=== PATIENT | male | born 1935 | race Caucasian/White ===

== ENCOUNTER 2016-08-11 03:58 | Emergency (ER) | payer OTHER ==
[~2016-08-11] VITALS: Ht 182.9 cm; Wt 91.7 kg
[~2016-08-11 03:58] MED LIST: GLUC500T23 PO; LISI-461 PO; METO50TA7 PO; MIRT15TA2 PO; NTRGSL4 SL; SALI0.6517; SIMV20TA2 PO
[2016-08-11 04:00] VITALS: TEMP 36.6; Ht 182.9 cm; Wt 91.7 kg
--- NOTE | 2016-08-11 05:01 | EMERGENCY ROOM VISIT NOTE ---
History Report prepared by Wendy: Bettye Carmona Under the Supervision of: Dr. Arely Dillon M.D. 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 The patient has been experiencing bilateral leg weakness for the past month that has been worsening. Early this morning he woke up to go to the bathroom and get a drink of water. He stood and felt dizzy. His legs were very weak and he sat down in the recliner. After a short time he tried to get up and he fell forward into the coffee table landing on his left rib cage. The patient is complaining of left rib pain that is a 1/10 in severity. He has chronic back pain, which he states is worse after his fall. The patient has a history of Non-Hodgkin's Lymphoma and last received chemotherapy in December 2015. He was recently diagnosed with a mass in his testicle. His daughter states that his oncologist in [place] suspects that his cancer has returned. The patient is scheduled for a PET scan today in [place]. After his fall this morning his [facility] and was advised to bring the patient to the ED at [facility] for further evaluation. The patient denies shortness of breath, chest pain, abdominal pain, and neck pain. 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 Review of Systems See HPI for pertinent positives & negatives. A total of 10 systems reviewed and were otherwise negative. Past Medical & Surgical Medical Problems: (1) CAD (coronary artery disease) (2) H/O diverticulitis of colon (3) History of tobacco abuse (4) Hx of basal cell carcinoma (5) Hyperlipidemia (6) Hypertension (7) Lung nodules (8) Lymphoma (9) Malignant neoplasm prostate (10) WV (myocardial infarction) (11) Neutropenic fever (12) Non-Hodgkin lymphoma (13) Osteoarthritis (14) Pseudomonal sepsis (15) Sepsis Surgical Problems: (1) H/O colonoscopy (2) H/O radical prostatectomy (3) History of arthroplasty of right knee (4) History of cataract surgery (5) History of dental surgery (6) S/P coronary artery stent placement (7) S/P inguinal hernia repair Family History FH: cancer Heart disease Hypertension Social History Smoking Status: Former Smoker Marital Status: Housing Status: lives with significant other Occupation Status: retired Current/Historical Medications Scheduled Glucosamine-Chondroitin (Glucosamine/Chondroitin), 1 TAB PO BID Lisinopril (Zestril), 10 MG PO QAM Metoprolol Succ (Toprol Xl) (Toprol-Xl), 50 MG PO QAM Simvastatin (Zocor), 20 MG PO HS Scheduled PRN Hydrocodone/Acetaminophen 5MG/325MG (Spring 5MG/325MG), 1-2 TABLETS PO Q6 PRN for Pain Nitroglycerin (Nitrostat), 1 TAB SL UD PRN for CHEST PAIN Sodium Chloride (Greenleaf Nasal), 1 SPRAY NA UD PRN for Nasal Congestion Allergies Coded Allergies: Adhesives (Unverified Allergy, Unknown, RED SKIN WITH SOME TAPES, 08/09/16) Allopurinol (Unverified Allergy, Unknown, RASH ON STOMACH , 08/09/16) Niacin (Verified Adverse Reaction, Unknown, FLUSH SKIN, 08/09/16) Physical Exam Vital Signs Date Time Temp Pulse Resp B/P Pulse Ox O2 Delivery O2 Flow Rate FiO2 08/11/16 07:30 86 164/84 08/11/16 06:25 96 24 157/90 95 Room Air 08/11/16 05:18 85 20 151/91 92 Room Air 08/11/16 04:50 86 08/11/16 04:00 36.6 78 20 162/87 95 Room Air Physical Exam Vital signs reviewed. General: Chronically ill-appearing 80-year-old male, in no significant distress. HEENT: No scleral icterus, PERRLA, neck supple. Atraumatic. Cardiovascular: Regular rate and rhythm, no extra sounds. Pulmonary: Clear to auscultation bilaterally, normal work of breathing. Abdomen: Soft, nontender, nondistended, positive bowel sounds. Musculoskeletal: 3 cm ecchymotic area over the left anterior ribs, no peripheral edema. Nontender to palpation of cervical, thoracic and lumbar spine. Neurologic: Patient awake alert and oriented x 3, full strength in all 4 extremities. Cranial nerves 2 through 12 grossly intact. Skin: Warm, dry, multiple subcutaneous nodules to the upper extremities and trunk. Medical Decision & Procedures ER Provider Diagnostic Interpretation: Radiology results as stated below per my review and radiologist interpretation: CT CHEST WITH CONTRAST: Comparison is made to CT chest dated 08/14/15. Main pulmonary artery is enlarged compatible with pulmonary arterial hypertension. Thoracic aorta is normal in caliber. There is cardiomegaly and coronary sclerosis without pericardial effusion. There is no adenopathy by size criteria. Lungs demonstrate centrilobular emphysematous changes and mild subpleural reticulations towards the lung bases. There is no airspace consolidation, pleural effusion, or pneumothorax. There is no evidence of acute osseous abnormality. Sclerosis of the lateral left seventh rib may represent old, healed fracture. There is an area of mild left lateral chest wall contusion over the left 6th and 7th ribs. There is a 3cm region of soft tissue density in the subcutaneous tissues posterolateral to the left scapula (series 2, image 24), indeterminate, metastatic/neoplastic lesion is a possibility. CT ABDOMEN & PELVIS: Comparison is made to CT abdomen and pelvis dated 08/16/15. There is a 23 mm soft tissue density nodule anterior to the left hepatic lobe, new from prior exam. This may represent a peritoneal nodule related to metastatic disease. This nodule is located inferior to the xiphoid near the midline (series 3, image 18), potentially amenable to ultrasound evaluation. The liver is unremarkable. There is stable splenomegaly measuring 17 cm. There is mild gallbladder wall thickening which may represent hyperplastic cholecystosis or neoplastic process. Gallbladder ultrasound may be performed for further evaluation. The pancreas and left adrenal gland are normal. There is a stable 22 mm right intrarenal nodule, most likely a benign adenoma. The kidneys are normal. There is aortoiliac atherosclerosis without aneurysm. There is no evidence of bowel obstruction, appendicitis, or diverticulitis. Prostate is surgically absent. Urinary bladder is unremarkable. There is a fat- containing left inguinal hernia. There is mild left inguinal adenopathy. Bones are osteopenic. Multilevel mild compression deformities in the lower thoracic and upper lumbar spine are stable from prior exam. Radiologist: Farzad Samuels M.D. Laboratory Results Test 08/11/16 05:01 08/11/16 06:32 Bedside Hemoglobin 12.6 g/dl (14.0-18.0) Bedside Hematocrit 37 % (42-52) Bedside Sodium 141 mEq/L (135-144) Bedside Potassium 3.9 mEq/L (3.3-5.0) Bedside Chloride 103 mEq/L (101-112) Bedside Total CO2 23 mEq/l (24-31) Anion Gap 20.0 mmol/L (16-25) Bedside Blood Urea Nitrogen 22 mg/dl (7-18) Bedside Creatinine 0.8 mg/dl (0.6-1.3) Bedside Glucose (other) 96 mg/dl (70-99) Bedside Ionized Calcium (Mauricio) 1.21 mmol/l (1.12-1.32) Urine Color YELLOW Urine Appearance CLEAR (CLEAR) Urine pH 5.5 (4.5-7.5) Urine Specific [place] 1.015 (1.000-1.030) Urine Protein NEG (NEG) Urine Glucose (UA) NEG (NEG) Urine Ketones 1+ (NEG) Urine Occult Blood TRACE (NEG) Urine Nitrite NEG (NEG) Urine Bilirubin NEG (NEG) Urine Urobilinogen NEG (NEG) Urine Leukocyte Esterase NEG (NEG) Urine RBC 0-4 /hpf (0-4) Urine WBC 0 /hpf (0-5) Urine Epithelial Cells 0-5 /lpf (0-5) Urine Bacteria NEG (NEG) Laboratory results per my review. Medications Administered Medications (Trade) Dose Ordered Sig/Brenna Route Start Time Stop Time Status Last Admin Dose Admin Acetaminophen/ Hydrocodone Bitart (Spring 5/325mg Home Pack) 1 homepack UD ONCE PO 08/11/16 07:30 08/11/16 07:31 DC 08/11/16 07:27 1 HOMEPACK ECG Indication: weakness Rate (beats per minute): 88 Rhythm: sinus rhythm Findings: PAC, RBBB (incomplete), left axis deviation, other (previous anterior infarct, previous septal infarct) ED Course 0414: Past medical records reviewed. The patient was evaluated in room A11B. A complete history and physical examination was performed. 0712: I reassessed the patient at this time. He is feeling better and resting comfortably. I discussed the results and treatment plan with the patient. I answered all pertaining questions that he had. He expressed understanding and verbalized agreement. The patient will be discharged home. 0730: Spring 5/325 mg PO 1 homepack Medical Decision Differential diagnoses includes: Intracranial injury, cervical spine injury, intrathoracic injury, intra- abdominal injury, musculoskeletal injury. This pt was evaluated and appears to be in no distress. IV access was obtained and lab work was drawn. Pt c/o a pain along the left ribs and has a hematoma in that area. H/H is stable. Pt has h/o lymphoma and is currently being evaluated for recurrence. CT chest and abd was performed to r/o organ injury. This study is as above and no acute trauma is seen. Pt was d/c with family and a norco HP. He is driving to [place] today for PET scan. He will return to the ED for worsening of symptoms or any medical concerns. Impression Primary Impression: Rib contusion Additional Impression: Accident due to mechanical fall without injury Scribe Attestation The scribe's documentation has been prepared under my direction and personally reviewed by me in its entirety. I confirm that the note above accurately reflects all work, treatment, procedures, and medical decision making performed by me. Departure Information Dispostion Home / Self-Care Prescriptions Hydrocodone/Acetaminophen 5MG/325MG (Spring 5MG/325MG) Tab 1-2 TABLETS PO Q6 Y for Pain, #20 TAB Prov: Arely Dillon M.D. 08/11/16 Referrals Olvin Rodas D.OSoraya (PCP) Forms HOME CARE DOCUMENTATION FORM, IMPORTANT VISIT INFORMATION Patient Instructions My [facility] Additional Instructions Diagnosis: Fall with rib contusion Please follow-up later today for your PET scan. Tylenol 650 mg every 6 hours as needed for pain. Drink plenty of clear fluids. Follow-up with your physician this week for reevaluation. Return to the ER for worsening of symptoms or any medical concerns. Problem Qualifiers Primary Impression: Rib contusion Encounter type: initial encounter Laterality: left Qualified Codes: S20.212A - Contusion of left front wall of thorax, initial encounter Additional Impression: Accident due to mechanical fall without injury Encounter type: initial encounter Qualified Codes: W19.XXXA - Unspecified fall, initial encounter
[2016-08-11] MEDS ORDERED: OPTIRAY 320 IV PRN (05:15)
[2016-08-11 05:20] LABS: ISTAT CREATININE 0.8 mg/dl (0.6-1.3); ISTAT HEMOGLOBIN 12.6 g/dl (14.0-18.0); ISTAT IONIZED CALCIUM 1.21 mmol/l (1.12-1.32)
[2016-08-11 06:25] VITALS: O2SAT 95
[2016-08-11 06:42] LABS: MANUAL MICROSCOPIC REQUIRED? YES; URINE APPEARANCE CLEAR (CLEAR); URINE BILIRUBIN NEG (NEG); URINE COLOR YELLOW; URINE NITRITE NEG (NEG); URINE PH 5.5 (4.5-7.5); URINE SPECIFIC GRAVITY 1.015 (1.000-1.030); UROBILINOGEN NEG (NEG)
[2016-08-11 06:49] LABS: REVIEW REQ? NO
[2016-08-11 06:57] LABS: URINE BACTERIA NEG (NEG); URINE RBC 0-4 /hpf (0-4); URINE WBC 0 /hpf (0-5)
[2016-08-11 06:58] LABS: ZZUR CULT IF INDIC CLEAN CATCH NO
--- NOTE | 2016-08-11 07:25 | DIAGNOSTIC IMAGING REPORT ---
CT OF THE CHEST WITH IV CONTRAST CLINICAL HISTORY: Fall with left rib injury. Lymphoma. COMPARISON STUDY: Chest CT August 14, 2015. TECHNIQUE: Following IV administration of 92 mL of Optiray-320, helical axial images of the chest were obtained. Images were viewed in the axial, sagittal and coronal planes. IV contrast was administered without complication. FINDINGS: No enlarged axillary, mediastinal or hilar lymph nodes are present. The heart is moderately enlarged. 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 A right internal jugular [id number] is in place. Note is made of a new subcutaneous nodule measuring 2.3 cm overlying the left scapula shown on image 120 of 346. There is also a new 2.8 cm soft tissue nodule anterior to the lateral segment of the liver since prior CT of August 14, 2015. Several small left pleural based nodules are new. In addition, there is nonspecific gallbladder thickening and mild peripancreatic infiltration and enlargement of the pancreas since prior exam. Splenomegaly has improved. These findings are better depicted on the abdominal CT. There may be an old splenic infarct. An aortocaval lymph node has increased in size. A 9 mm left hepatic lobe lesion is unchanged and likely benign. A 1.9 cm right adrenal lesion is unchanged and likely reflects an adenoma. No pneumothorax or pleural effusion is present. There is moderate to severe emphysema. A 7 mm lingular nodule shown on image 236 is unchanged. There is a new 1.4 cm irregular nodule within the left lower lobe shown on image 242. Minimal groundglass opacity within the right middle and upper lobes shown on image 224 is indeterminate. Central airways are patent. There is a small contusion of the left inferior chest wall. No acute rib fractures identified. A mild L1 compression fracture is age indeterminate but new since exam of August 14, 2015. IMPRESSION: 1. Mild L1 compression fracture, new since CT of August 16, 2015. While age indeterminate, an old fracture is favored. 2. No acute rib fracture or pneumothorax. Small contusion of the left lower anterior chest wall. 3. Interval development of a 2.3 cm subcutaneous nodule overlying left scapula, multiple small left pleural implants, an upper abdominal implant, mild upper abdominal lymphadenopathy and peripancreatic infiltration. Several these findings are better depicted on the abdominal CT but favor lymphoma. Acute pancreatitis could appear similar although lymphoma is favored given the clinical history. 4. Indeterminate 1.4 cm nodule within the left lower lobe. This could reflect lymphoma, airspace disease or less likely a primary lung malignancy. Attention to this nodule and subsequent studies is recommended. Electronically signed by: Niall Daniel M.D. 08/11/2016 7:24 AM Dictated Date/Time: 08/11/2016 6:52 AM
[2016-08-11 07:30] VITALS: BP 164/84; PULSE 86
[2016-08-11] MEDS ORDERED: NORCO 5/325MG HOME PACK PO ONE (07:30)
[2016-08-11] MEDS ORDERED: HYDR-5688 PO (07:42)
--- NOTE | 2016-08-11 08:17 | DIAGNOSTIC IMAGING REPORT ---
ABDOMEN AND PELVIS CT WITH IV CONTRAST CT DOSE: 1098.28 mGy.cm HISTORY: Left-sided abdominal pain. FALL TECHNIQUE: Multiaxial CT images of the abdomen and pelvis were performed following the use of intravenous contrast. COMPARISON STUDY: Abdomen and pelvis CT 08/16/2015. FINDINGS: Stable 6 mm nodule within the base of the lingula. There is a new 1.4 cm irregular nodular density base of left lower lobe. Focal soft tissue thickening within the left basilar pleural best in image 5. There is also a 1.2 cm groundglass opacity within the right middle lobe. No pneumoperitoneum or pneumatosis. No acute fractures within the visualized osseous structures. Mild superior endplate compression deformity at L1 appears to be old. There are 6 lumbar-type vertebral bodies. There is a tip of a catheter within the right atrium. Stable 7 mm hypodense lesion within the left hepatic lobe and a stable 1.8 cm right adrenal gland nodule. Abnormal thickening of the gallbladder wall at the neck of the gallbladder. There is also diffuse soft tissue infiltration within the pancreas with mild peripancreatic inflammatory change. The main portal vein and superior mesenteric veins are patent. 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 Focal patchy areas of abnormal soft tissue inferior to the left kidney measuring 3.2 cm and posterior to the right kidney measuring 1.8 cm. Abnormal subcutaneous soft tissue thickening at the L5 level measuring 3.1 cm. There is a new soft tissue nodule anterior to the left hepatic lobe which measures 2.9 cm. There is enlarged left inguinal lymph node measuring 2.5 x 1.9 cm. Mildly enlarged left external iliac lymph node which is increased in size. Increase in size in a left pelvic sidewall lymph node on image 348. The bladder is unremarkable. Colonic diverticulosis. No bowel wall thickening or obstruction. The prostate gland is surgically absent. Small left fat-containing inguinal hernia. IMPRESSION: 1. No acute traumatic abnormality within the abdomen or pelvis. 2. Multiple new scattered soft tissue nodules/abnormalities and progressive left pelvic sidewall/single lymphadenopathy as described above. This includes soft tissue thickening of the gallbladder wall and diffuse soft tissue infiltration of the pancreas. These findings are highly suspicious for metastatic disease/lymphoma. In addition, the pancreatic abnormality could represent acute pancreatitis. Recommend correlation with pancreatic enzymes. 3. Pulmonary nodules and a left pleural-based soft tissue lesion also likely represent metastatic disease/lymphoma. Electronically signed by: Dylon Weeks M.D. 08/11/2016 8:16 AM Dictated Date/Time: 08/11/2016 7:54 AM
== END 2016-08-11 07:58 | disposition home or self-care (01) ==
LOC: EDBD 03:58 → C.EDA 03:58
DX: S20.212A Contusion of left front wall of thorax, initial encounter (principal); W19.XXXA Unspecified fall, initial encounter; Y92.019 Unspecified place in single-family (private) house as the place of occurrence of the external cause; Z85.72 Personal history of non-Hodgkin lymphomas; I25.10 Atherosclerotic heart disease of native coronary artery without angina pectoris; Z85.828 Personal history of other malignant neoplasm of skin; Z85.46 Personal history of malignant neoplasm of prostate; E78.5 Hyperlipidemia, unspecified; I10 Essential (primary) hypertension; I25.2 Old myocardial infarction; M19.90 Unspecified osteoarthritis, unspecified site; Z80.9 Family history of malignant neoplasm, unspecified; Z82.49 Family history of ischemic heart disease and other diseases of the circulatory system; Z87.891 Personal history of nicotine dependence